=== PATIENT | male | born 1960 ===

== ENCOUNTER 2023-03-01 11:43 | Outpatient (REF) | payer MEDICAID, SELFPAY ==
[2023-03-01 13:56] LABS: Cholesterol 258 mg/dL (<200); HDL Cholesterol 54 mg/dL (>40); LDL Cholesterol Calculated 172 mg/dL (<100); Triglycerides 162 mg/dL (<150)
[2023-03-01 14:08] LABS: Alanine Aminotransferase 22 U/L (0-40); Albumin Level 4.4 g/dL (3.5-5.0); Alkaline Phosphatase 120 U/L (39-117); Aspartate Amino Transferase 16 U/L (5-37); Bilirubin Direct 0.2 mg/dL (0.0-0.5); Bilirubin Total 0.8 mg/dL (0.0-1.0); Total Protein 7.7 g/dL (6.5-8.0)
[2023-03-01 14:17] LABS: Vitamin D 25-OH Total 75.7 ng/mL (>30)
[2023-03-01 14:27] LABS: Reflex LDLD? No
== END 2023-03-01 11:44 | disposition home or self-care (01) ==
LOC: HO.HHCL 11:43
PROVIDERS: Visit Provider Internal Medicine
DX: E78.2 Mixed hyperlipidemia (principal); F33.1 Major depressive disorder, recurrent, moderate
CPT/HCPCS: 36415; 80061; 80076; 82306

== ENCOUNTER 2023-07-26 10:32 | Outpatient (REF) | payer MEDICAID, SELFPAY ==
[2023-07-26 12:40] LABS: Alanine Aminotransferase 15 U/L (0-40); Albumin Level 4.4 g/dL (3.5-5.0); Alkaline Phosphatase 123 U/L (39-117); Aspartate Amino Transferase 16 U/L (5-37); Bilirubin Direct 0.2 mg/dL (0.0-0.5); Bilirubin Total 0.6 mg/dL (0.0-1.0); Cholesterol 269 mg/dL (<200); HDL Cholesterol 57 mg/dL (>40); LDL Cholesterol Calculated 182 mg/dL (<100); Total Protein 7.7 g/dL (6.5-8.0); Triglycerides 152 mg/dL (<150)
[2023-07-26 12:45] LABS: Reflex LDLD? No
== END 2023-07-26 10:33 | disposition home or self-care (01) ==
LOC: HO.HHCL 10:32
PROVIDERS: Visit Provider Internal Medicine
DX: E78.2 Mixed hyperlipidemia (principal)
CPT/HCPCS: 36415; 80061; 80076

== ENCOUNTER 2023-10-17 13:35 | Outpatient (REF) | payer MEDICAID, SELFPAY ==
[2023-10-17 16:13] LABS: Appearance Urine Clear; Color Urine Yellow; Glucose Urine UA Negative (Negative); Leukocyte Esterase Urine Negative (Negative); Nitrite Urine Negative (Negative); UMIC TRIGGER UACC YES; Urine Blood Moderate (2+) (Negative); Urine Ketones Negative (Negative); Urine Protein Negative (Neg-Trace)
[2023-10-17 16:16] LABS: Bacteria Urine None Seen (None Seen); Hyaline Casts Urine 0-2 /LPF (0-2); WBC Urine 0-5 /HPF (0-5)
[2023-10-17 16:56] LABS: PSA,Total (Free>4and<10) 1.35 ng/mL (0.00-4.00)
== END 2023-10-17 13:36 | disposition home or self-care (01) ==
LOC: HO.HHCL 13:35
PROVIDERS: Visit Provider Internal Medicine
DX: R39.9 Unspecified symptoms and signs involving the genitourinary system (principal)
CPT/HCPCS: 36415; 81001; 84153

== ENCOUNTER 2023-10-27 12:02 | Outpatient (REF) | payer MEDICAID, SELFPAY ==
--- NOTE | ~2023-10-27 | US_ITS ---
EXAMINATION: US RETROPERITONEAL LIMITED (RENAL ONLY) CLINICAL INFORMATION: Hematuria. Rule out kidney stones. COMPARISON: None available. TECHNIQUE: Real-time imaging of the kidneys. FINDINGS: RIGHT KIDNEY: 10.3 x 6.0 x 5.1 cm (SAG x AP x TRV). The kidney is normal in size, contour, and echogenicity. Renal cortical thickness is normal. No renal calculi or hydronephrosis. Small cyst 5 x 6 x 5 mm. LEFT KIDNEY: 10.1 x 5.4 x 5.3 cm (SAG x AP x TRV). The kidney is normal in size, contour, and echogenicity. Renal cortical thickness is normal. No calculi or focal parenchymal lesions. No hydronephrosis. BLADDER: Large shadowing structure likely stone in the urinary bladder 1.5 x 1.7 x 1.9 cm. US/US renal BI IMPRESSION: 1. Large shadowing structure likely stone in the urinary bladder 1.9 cm. 2. No ultrasound evidence of renal obstruction or hydronephrosis.
== END 2023-10-27 12:03 | disposition home or self-care (01) ==
LOC: HO.US 12:02
PROVIDERS: PCP Internal Medicine; Visit Provider Internal Medicine
DX: R31.29 Other microscopic hematuria (principal)
CPT/HCPCS: 76775

== ENCOUNTER 2023-12-22 10:44 | Outpatient (AMB) | payer MEDICAID, SELFPAY ==
--- NOTE | 2023-12-22 10:45 | A.OFFVIS_ITS ---
Intake Visit Reasons: urinary frequency Intake Note: New Patient presents for initial visit for urinary frequency Urology Medications: none Blood Thinner: none PVR: 10ml's Roof Technician Required: No Accompanied by: Self / Same As Patient Allergies No Known Allergies Allergy (Verified 12/22/23 11:20) Medication List - Last Reconciled 12/22/23 by ARNULFO Lockett atorvastatin 40 mg PO DAILY buspirone 7.5 mg PO BID fluoxetine 20 mg PO DAILY hydroxyzine pamoate 25 mg PO TID PRN tamsulosin 0.4 mg PO BEDTIME 30 days venlafaxine ER 150 mg PO DAILY HPI Comments Details: Nelson is a pleasant 63-year-old Faroese-speaking male patient of Dr. Handy. He has a past medical history of allergies, GERD, vitamin-D deficiency, mixed hyperlipidemia, recurrent depression, and constipation. He presents to the office today as a new patient for ongoing lower urinary tract symptoms he has been experiencing (urinary urgency and urinary frequency). He reports having followed up with his PCP at which time a renal ultrasound was ordered for further assessment evaluation and referral to Urology was made. These results were reviewed with the patient today. Large shadowing structure likely stone in the urinary bladder measuring a proximally 1.9 cm. Bilateral kidneys with no calculi or hydronephrosis. Small right-sided renal cysts measuring a proximally 5 mm. Patient was unable to provide urine for urinalysis today however PVR 10 mL. In review of patient's chart it appears PSA was ordered and performed. These results reviewed with the patient today. 10/25 1.4. We discussed at length potential causes of lower urinary tract symptoms he is experiencing as well as bladder stones. Discussed further treatment options. He otherwise denies incontinence, dysuria, foul smelling urine, changes to urinary stream, flank pain, fever, and or chills. [facility] Medical History (Updated 12/22/23 @ 11:17 by Lauren Garcia, RIB CUTTER-BC) Lower urinary tract symptoms Non-seasonal allergic rhinitis Elevated blood pressure reading Tachycardia Gastro-esophageal reflux At risk for deficient intake of food Slow transit constipation Decreased vision Vitamin D deficiency Atopic conjunctivitis Chronic gastritis Mixed hyperlipidemia Moderate recurrent major depression Review of Systems Const All systems reviewed & are unremarkable except as noted in HPI and below Physical Exam Const General: cooperative, comfortable, no acute distress, well developed, alert and awake Orientation/consciousness: patient oriented x3 HEENT Head: Yes normal to inspection, Yes normocephalic and Yes atraumatic Ears: hearing grossly normal bilaterally Eyes General: appearance normal, both eyes and all related structures Neck Neck: Yes normal visual inspection and Yes trachea midline Chest Chest palpation & inspection: normal inspection of the chest Resp Effort & Inspection: normal respiratory effort and able to speak in complete sentences Cardio Rate: regular rate GI Inspection: Yes normal to inspection General: Yes no CVA tenderness Back/Spine/Pelvis Back: no CVA tenderness Skin General skin exam: no rashes or lesions noted Neuro General: patient oriented x3 Extrem General: Yes normal to inspection Psych Appearance: grossly normal and well kempt Mental Status: mental status grossly normal Speech and movement: Normal speech and movement present and Clear speech present Affect: normal affect Attitude: cooperative Thought process: Normal thought process present Thought content: Normal thought content present Insight: Fair insight present (Psych) Judgement: Fair judgement present (Psych) Office Procedures Post Void Residual Post Residual Void Post Void Residual (PVR): 10 46445-Lipf Void Residual by ultrasound Results Reviewed Results Reviewed: Date of Service: 10/27/23 EXAMINATION: US RETROPERITONEAL LIMITED (RENAL ONLY) FINDINGS: RIGHT KIDNEY: 10.3 x 6.0 x 5.1 cm (SAG x AP x TRV). The kidney is normal in size, contour, and echogenicity. Renal cortical thickness is normal. No renal calculi or hydronephrosis. Small cyst 5 x 6 x 5 mm. LEFT KIDNEY: 10.1 x 5.4 x 5.3 cm (SAG x AP x TRV). The kidney is normal in size, contour, and echogenicity. Renal cortical thickness is normal. No calculi or focal parenchymal lesions. No hydronephrosis. BLADDER: Large shadowing structure likely stone in the urinary bladder 1.5 x 1.7 x 1.9 cm. IMPRESSION: 1. Large shadowing structure likely stone in the urinary bladder 1.9 cm. 2. No ultrasound evidence of renal obstruction or hydronephrosis. Assessment & Plan Assessment & Plan (1) Bladder calculi: Code(s): N21.0 - Calculus in bladder Category: Medical (2) Urinary frequency: Code(s): R35.0 - Frequency of micturition Category: Medical Plan Unable to obtain urine for urinalysis however PVR 10 mL. Recent renal ultrasound results reviewed with the patient today; as noted above. Recent PSA results reviewed with the patient today; as noted above. Start Flomax as discussed and prescribed. Discussed in office cystoscopy for further assessment evaluation of bladder stone and possible surgical intervention; risks and benefits of this intervention was discussed All questions were answered. Discussed potential causes of lower urinary tract symptoms as well as bladder stones. Follow-up in office cystoscopy; or sooner with any issues, concerns, and or questions. Orders: Orders AMB Urinalysis Automated Today Z13.9 - Encounter for screening, unspecified AMB Post Void Residual by ultrasound Today Z13.9 - Encounter for screening, unspecified Medications: New tamsulosin 0.4 mg PO BEDTIME 30 caps 3RF 30 days N40.1 - Benign prostatic hyperplasia with lower urinary tract symptoms, R35.1 - Nocturia Coding Level of Care Code New Pt Level 4 (68306) Diagnoses Bladder calculi N21.0 Urinary frequency R35.0 CPT Codes Post Residual Void - PVR CPT Code: 30636-Qqqn Void Residual by ultrasound ([id number])
== END 2023-12-22 11:29 | disposition home or self-care (01) ==
PROVIDERS: PCP Internal Medicine; Visit Provider Nurse Practitioner Family
DX: N21.0 Calculus in bladder (principal); R35.0 Frequency of micturition
CPT/HCPCS: 99204

== ENCOUNTER → 2023-12-22 10:44 | Outpatient (BNVA) | payer MEDICAID, SELFPAY | PROVIDERS: PCP Internal Medicine; Visit Provider Nurse Practitioner Family | DX: N21.0 Calculus in bladder (principal); R35.0 Frequency of micturition | CPT/HCPCS: 51798; 99212 ==

== ENCOUNTER 2024-02-02 13:35 | Outpatient (AMB) | payer MEDICAID, SELFPAY ==
--- NOTE | 2024-02-02 13:57 | MHC.OFFVIS ---
Intake Visit Reasons: cysto(Urinary Frequency) Intake Note: Patient is Present for Cystoscopy Urology Med: Tamsulosin Antibiotic Allergy:None Blood Thinner: None URO- G Disposable Cystoscope lot:[id number] exp:05/05/2026 Helper Metal Hanging Required: Yes Helper Metal Hanging Language: Natural Resource Economist Services: Helper Metal Hanging Present Information Interpreted: clinical only Accompanied by: Self / Same As Patient Allergies No Known Allergies Allergy (Verified 02/02/24 14:02) HPI Comments Details: Nelson is a pleasant Turkmen-speaking male. He is a patient of Dr. Handy. Using for the following urologic conditions - bladder stone - lower urinary tract symptoms Cystoscopy - bladder stone with irritated bladder mucosa Recommend GreenLight laser prostate with holmium laser bladder stone Lower urinary tract symptoms Should presentation with urgency and frequency Ultrasound performed which showed 1.9 cm bladder stone PFSH Medical History Lower urinary tract symptoms Non-seasonal allergic rhinitis Elevated blood pressure reading Tachycardia Gastro-esophageal reflux At risk for deficient intake of food Slow transit constipation Decreased vision Vitamin D deficiency Atopic conjunctivitis Chronic gastritis Mixed hyperlipidemia Moderate recurrent major depression Review of Systems Const Denies chills and Denies fever(s) Card Reports no additional complaints and Denies syncope Resp Denies cough GI Denies abdominal pain and Denies heartburn Reports as per HPI and Denies change in libido Neuro Denies syncope Psych Denies change in libido Endo Denies change in libido Physical Exam Const General: cooperative, healthy appearing, comfortable and no acute distress Orientation/consciousness: patient oriented x3 HEENT Face and sinus: Yes normal facial exam Mouth: moist mucous membranes Neck Neck: Yes normal visual inspection, Yes full ROM and Yes trachea midline Chest Chest palpation & inspection: normal inspection of the chest Resp Effort & Inspection: normal respiratory effort, able to speak in complete sentences and no respiratory distress GI Inspection: Yes normal to inspection Back/Spine/Pelvis Cervical Spine: normal cervical lordosis Thoracic/Lumbar Spine: thoracic and lumbar spine normal to inspection Skin General skin exam: no rashes or lesions noted Neuro General: patient oriented x3, gait normal, tone normal and moves all extremities Extrem General: Yes normal to inspection and Yes capillary refill normal Office Procedures Cystoscopy Consent Discussed risk and benefit or proposed procedure with the patient. Information consent for procedure given to the patient. Discussed technical aspects, risks, benefits and alternatives in full. Addressed all of the patient's questions and concerns regarding the procedure. The patient demonstrated knowledge and understanding. They wish to proceed with this procedure. Preparation The patient was prepped in the usual manner. A batch plant supervisor was present and in the room. Genitalia was prepped with betadine solution in a sterile manner. Lidocaine Jelly 2% was placed into the urethra and 16Fr flexible Olympus cystoscope was inserted into the meatus after adequate lubrication. [id number] DISPOSABLE SCOPE URO-G FLEXIBLE SCOPE Procedure code (CPT) selection complete Office Meds lidocaine HCl 2 % mucosal jelly in applicator Performing Provider: Shivam Bellamy MD Performing Location: [facility] Administered by: Rob Pal RN on 02/02/24 14:17 Dose Route Admin Location Dispensed Lot Number Expiration Date NDC [employer] 10 mL intra-urethral 10 mL nitrofurantoin monohydrate/macrocrystals 100 mg capsule Performing Provider: Shivam Bellamy MD Performing Location: [facility] Administered by: Rob Pal RN on 02/02/24 14:17 Dose Route Admin Location Dispensed Lot Number Expiration Date NDC [employer] 100 mg PO 1 cap naproxen 500 mg tablet Performing Provider: Shivam Bellamy MD Performing Location: [facility] Administered by: Rob Pal RN on 02/02/24 14:17 Dose Route Admin Location Dispensed Lot Number Expiration Date NDC [employer] 500 mg PO 1 tab Assessment & Plan Assessment & Plan (1) Bladder outlet obstruction: Code(s): N32.0 - Bladder-neck obstruction Category: Medical Plan Risks, benefits and alternatives to therapy were discussed. These include but are not limited to infection, bleeding, damage to local organs and tissues, need for further interventions. Anesthetic risks regarding cardiac arrhythmia, blood clots, and potential mortality were discussed. The patient understands the typical recovery time and the outpatient nature of the procedure. After consideration of these risks the patient gives full informed consent and they wish to move ahead with the procedure. GreenLight laser prostate, holmium laser bladder stone Orders: Orders AMB Urinalysis Automated Today Z13.9 - Encounter for screening, unspecified AMB Cystoscopy Today R35.0 - Frequency of micturition Medications: New lidocaine HCl 2% 10 mL intra-urethral ONCE 10 mL 0RF R35.0 - Frequency of micturition nitrofurantoin monohyd/m-cryst 100 mg 100 mg PO ONCE 1 cap 0RF R35.0 - Frequency of micturition naproxen 500 mg PO ONCE 1 tab 0RF R35.0 - Frequency of micturition Patient Instructions: Imaging studies, laboratory and physical exam results were discussed and reviewed in detail. No major barriers to patient understanding were identified. An opportunity to ask questions regarding the treatment plan was provided. All questions were answered. The patient expressed understanding and agreement with the above treatment plan. The patient is aware they should contact our office by phone for worsening of their current condition or the appearance of new urologic symptoms. Compliance is encouraged with any medications and followup testing that is ordered. It is a privilege to participate in the urologic care of your patient. If you have any questions or concerns regarding treatment for the above conditions, or other urologic issues, please do not hesitate to contact me. The office telephone contact is [phone]. This note is constructed using voice recognition software. While every effort has been made to ensure accuracy support services coordinator errors may have been included. Yours sincerely, Dr Shivam Bellamy MD, [facility] - Urology Providers of Expert, Compassionate Care for the Genitourinary System Coding Level of Care Code Est Pt Level 4 (65536) Diagnoses Bladder outlet obstruction N32.0 CPT Codes Cystoscopy - CPT: 14510-Snkjtzetny ([id number])
== END 2024-02-02 14:30 | disposition home or self-care (01) ==
LOC: HO.HUSH 13:36
PROVIDERS: PCP Internal Medicine; Visit Provider Urology
DX: N32.0 Bladder-neck obstruction (principal); R35.0 Frequency of micturition
CPT/HCPCS: 52000; 99214

== ENCOUNTER → 2024-02-02 13:35 | Outpatient (BNVA) | payer MEDICAID, SELFPAY | PROVIDERS: PCP Internal Medicine; Visit Provider Urology | DX: N32.0 Bladder-neck obstruction (principal) | CPT/HCPCS: 52000; 99212 ==

== ENCOUNTER 2024-03-05 06:44 | Day surgery (SDC) | payer MEDICAID, SELFPAY ==
[2024-02-28 13:05] VITALS: BMI 21.6
--- NOTE | 2024-02-29 10:59 | P.CONAN_ITS ---
Documented by User: Jordana Mixon NP 02/29/24 10:59 HPI - Anesthesia Eval Consult details Narrative: 63yo M for Laser Ablation Prostate w/Green Light,with Bladder Stone Removal PMFSH Active Problems Active Problems: All Active Problems Bladder outlet obstruction (Acute) Urinary frequency (Acute) Bladder calculi (Acute) Past Medical History Medical History (Updated 02/02/24 @ 14:28 by Shivam Bellamy MD) Lower urinary tract symptoms Non-seasonal allergic rhinitis Elevated blood pressure reading Tachycardia Gastro-esophageal reflux At risk for deficient intake of food Slow transit constipation Decreased vision Vitamin D deficiency Atopic conjunctivitis Chronic gastritis Mixed hyperlipidemia Moderate recurrent major depression Surgical History Surgical History Hx of circumcision History of esophagogastroduodenoscopy (EGD) H/O colonoscopy Social History Social History Are you a primary resident care aide to a significant other at home: No Do you presently have visiting nurse or other home services: No Patient Tobacco Use Status: Never used Tobacco Have you been hit, kicked, punched, or otherwise hurt by someone within the past year? If so, by whom?: No Are you DNR?: No Advance Directives: No Advance Directives Information Provided: No Advance Directives on File: No Recently lost weight without trying: Yes How much weight loss: 2-13 pounds Eating poorly because of decreased appetite: No Nutrition screen score: 3 Nutrition Risks: No Nutritional Risk Poor oral hygiene: No Meds Allergies Allergy/AdvReac Type Severity Reaction Status Date / Time No Known Allergies Allergy Verified 02/02/24 14:02 Home Medications ?Medication ?Instructions ?Recorded ?Confirmed ?Last Taken ?Type atorvastatin 40 mg tablet 40 mg PO DAILY 12/22/23 03/05/24 Unknown History buspirone 7.5 mg tablet 7.5 mg PO BID anxiety 12/22/23 03/05/24 Unknown History fluoxetine 20 mg capsule 20 mg PO DAILY 12/22/23 03/05/24 Unknown History hydroxyzine pamoate 25 mg capsule 25 mg PO TID PRN panic attack 12/22/23 03/05/24 Unknown History venlafaxine 150 mg 150 mg PO DAILY 12/22/23 03/05/24 Unknown History capsule,extended release 24 hr omeprazole 40 mg capsule,delayed 40 mg PO DAILY PRN heartburn 02/28/24 03/05/24 Unknown History release Exam Height,Weight and Vital Signs: Height 5 ft 4 in Weight 57.2 kg Assessment and Plan Assessment Anesthesia Assessment: Chart Reviewed Documented by User: Katheryn Teran MD 03/05/24 09:12 [facility] Past Medical History Medical History (Updated 02/02/24 @ 14:28 by Shivam Bellamy MD) Lower urinary tract symptoms Non-seasonal allergic rhinitis Elevated blood pressure reading Tachycardia Gastro-esophageal reflux At risk for deficient intake of food Slow transit constipation Decreased vision Vitamin D deficiency Atopic conjunctivitis Chronic gastritis Mixed hyperlipidemia Moderate recurrent major depression Family History Family history of problems with anesthesia: No Surgical History Surgical History Hx of circumcision History of esophagogastroduodenoscopy (EGD) H/O colonoscopy History of Problems with Anesthesia: No Social History Social History Are you a primary resident care aide to a significant other at home: No Do you presently have visiting nurse or other home services: No Patient Tobacco Use Status: Never used Tobacco Have you been hit, kicked, punched, or otherwise hurt by someone within the past year? If so, by whom?: No Are you DNR?: No Advance Directives: No Advance Directives Information Provided: No Advance Directives on File: No Recently lost weight without trying: Yes How much weight loss: 2-13 pounds Eating poorly because of decreased appetite: No Nutrition screen score: 3 Nutrition Risks: No Nutritional Risk Poor oral hygiene: No Meds Allergies Allergy/AdvReac Type Severity Reaction Status Date / Time No Known Allergies Allergy Verified 02/02/24 14:02 Home Medications ?Medication ?Instructions ?Recorded ?Confirmed ?Last Taken ?Type atorvastatin 40 mg tablet 40 mg PO DAILY 12/22/23 03/05/24 Unknown History buspirone 7.5 mg tablet 7.5 mg PO BID anxiety 12/22/23 03/05/24 Unknown History fluoxetine 20 mg capsule 20 mg PO DAILY 12/22/23 03/05/24 Unknown History hydroxyzine pamoate 25 mg capsule 25 mg PO TID PRN panic attack 12/22/23 03/05/24 Unknown History venlafaxine 150 mg 150 mg PO DAILY 12/22/23 03/05/24 Unknown History capsule,extended release 24 hr omeprazole 40 mg capsule,delayed 40 mg PO DAILY PRN heartburn 02/28/24 03/05/24 Unknown History release Exam Airway Mallampati Class: II TM Dist: >3cm Neck ROM: Full Heart: rrr Lungs: cta Assessment and Plan Assessment Anesthesia Assessment: Anesthesia Plan Discussed Final Anesthetic Review Family History of Problems with Anesthesia: No History of Problems with Anesthesia: No NPO: Yes ASA Class: II Final Preanesthetic Review: No Changes in Pt Med Stat, Meds/Allgs Chart Reviewed and Consent Obtained/Reviewed Patient Risk: Low Procedure Risk: Low Anesthetic Plan Anesthetic Plan: GA Disposition: Standard PACU
[2024-03-05 07:45] VITALS: BMI 22.6
[2024-03-05 08:05] VITALS: BP 154/91; PULSE 108; RESP 16; TEMP 37.1; O2SAT 99
[2024-03-05] MEDS: Lactated Ringers 1,000 ML 100 ML IVCONT (08:07)
--- NOTE | 2024-03-05 09:08 | MHC.SHP ---
Pre-Procedural Eval Section A - 24 Hr Update-Section A only Date of Service: 03/05/24 The patient is an INPATIENT: No Changes since office visit: No Cold of Flu in the past 2 weeks, No New Medical Problems, No Changes in Medication and No Patient answered all questions The patient has been examined within 24 hours of the surgical procedure. The History & Physical has been completed within 30 days and I have reviewed it.: Yes Section B - Complete if H&P > 30 days Chief Complaint: Calculus in bladder,Bladder-neck obstruction Details of Present Illness: Holmium laser bladder stone plus GreenLight laser prostate Allergies: Allergies Allergy/AdvReac Type Severity Reaction Status Date / Time No Known Allergies Allergy Verified 02/02/24 14:02 Plan I have reviewed the history and physical and performed a pertinent physical examination on my patient. No changes have occurred unless specified. Time Spent With Patient Time: Total time managing care of this patient today ____ minutes.
--- NOTE | 2024-03-05 10:31 | W.PM.OPN ---
Operative Note Operative Note Date of Service: 03/05/24 Narrative: PreOperative Diagnosis: Bladder outlet obstruction with bladder stone Post Operative Diagnosis: Bladder outlet obstruction with bladder stone Procedure: Holmium laser bladder stone 2 cm GreenLight Laser Enucleation of the prostate CPT 08746 Surgeon: Dr Shivam Bellamy Anesthesia: General History of bladder outlet obstruction. Treated with alpha-myah and other medications. Still with symptoms. On cystoscopy in office has tight bladder neck with bladder stones. Recommendation for prostate procedure with laser enucleation of prostate. Risks and benefits have been discussed. Focus was placed on development of retrograde ejaculation which is a normal part of this procedure. Procedure: After informed consent was verified the patient was brought to the operating room and placed in a supine position. Anesthesia was administered per protocol. Patient was placed in modified dorsal lithotomy position and prepped and draped in a sterile fashion. Safety pause time-out was confirmed. Antibiotics have been given. A Twenty-four Guamanian laser cystoscope was inserted per urethra. No abnormalities were found of the anterior and bulbar urethra. The prostatic urethra shows tight bladder neck with 2 cm bladder stone. The bladder was examined and both ureteric orifices were seen in their normal positions away from the area of interest. Bladder trabeculation grade 2. Using a 560 nm end fire holmium laser with bladder stones settings the stone was slowly broken into small pieces. The small pieces were irrigated from the bladder. This continued for approximately 15-20 minutes to break the stone Using a GreenLight laser with settings of 80 ricardo incisions were made at the 5 and 7 o'clock position. The incisions were taken down from the bladder neck down to the level of the veru. These were gradually deepened in order to define the lateral aspects of the median lobe area. Once clearly defined they will also extended in the lateral directions in order to create a deep groove. The median lobe was then ablated and enucleated tissue released into the bladder with the laser power increased to 120 W. Once the median lobe area had been cleared attention was directed to the lateral lobes. Starting with the patient's left lateral lobe. First the 05:00 o'clock groove was further developed. This was moved in the lateral direction to undermine the tissue on the lateral side running from the bladder neck to the prostate apex. The ureteric orifice was used to guide incisions. Focus was then placed on the laser at the 1 o'clock position to developing a secondary groove down to the level of bladder fibers. The creation of a second deep groove defined a segment of intervening tissue similar to a slice of orange. At the apex of the prostate the 2 grooves were linked the us releasing the intervening tissue. This tissue was then removed with a combination of enucleation and ablation working from the apex toward the bladder neck. A similar procedure was repeated on the patient's right-hand side. The only differences being the position of the lateral groove at he 7 o'clock position and the secondary groove at the 11 o'clock position, Otherwise the procedure was developed in a mirror fashion. After the majority of tissue had been debulked remnant tissue was ablated with the side fire laser and the curve of the prostate followed up each side wall clearly defining the anterior remnant strip that remained between the 11 and 1 o'clock positions. In this case the anterior tissue protruded into the prostatic fossa and was partially ablated with the laser When this was had been completed debris and pieces of prostate were removed from the bladder with irrigation. Both ureteric orifices were reviewed again in shown to be patent in away from any areas of energy damage. The apical area was reviewed in any stray ooze was controlled. A 22 Guamanian 30 cc balloon Jimenez catheter was placed over a stylet into the bladder. Clear efflux was obtained upon irrigation with a Hemal piston syringe. 30 cc was placed in the balloon and gentle traction was placed. A snap was used to hold tension on the catheter to control bleeding during patient moved and transported. A drainage bag was placed. Once transportation is complete to the PACU the snap will be removed. The patient tolerated the procedure well, he was extubated in the operating and transferred in a stable condition to the recovery area. Total Power 90 kW Lasing time 13:53 Pathology: Prostate tissue Drains: Jimenez catheter
[2024-03-05 10:35] VITALS: BP 101/70; PULSE 74; RESP 16; TEMP 36.6; O2SAT 96
[2024-03-05 10:40] VITALS: BP 102/71; PULSE 70; RESP 16; TEMP 36.6; O2SAT 96
[2024-03-05 10:45] VITALS: BP 107/71; PULSE 68; RESP 16; TEMP 36.6; O2SAT 96
[2024-03-05 10:50] VITALS: BP 119/59; PULSE 79; RESP 16; TEMP 36.6; O2SAT 96
[2024-03-05 11:05] VITALS: BP 130/85; PULSE 84; RESP 16; TEMP 36.6; O2SAT 96
== END 2024-03-05 12:24 | disposition home or self-care (01) ==
PROVIDERS: PCP Internal Medicine; Visit Provider Urology
PROC: (CPT 52648; principal; 2024-03-05 09:20)
DX: N21.0 Calculus in bladder (principal); N32.0 Bladder-neck obstruction; R39.15 Urgency of urination; R35.0 Frequency of micturition; N32.89 Other specified disorders of bladder; R03.0 Elevated blood-pressure reading, without diagnosis of hypertension; E55.9 Vitamin D deficiency, unspecified; E78.2 Mixed hyperlipidemia; R00.0 Tachycardia, unspecified; J30.89 Other allergic rhinitis; K29.50 Unspecified chronic gastritis without bleeding; F33.1 Major depressive disorder, recurrent, moderate; Z79.899 Other long term (current) drug therapy
CPT/HCPCS: 52649; 52317; 88300; 88305; J1100; J1956; J2003; J2250; J2405; J2704; J3010

== ENCOUNTER → 2024-03-05 06:44 | Outpatient (BNV) | payer MEDICAID, SELFPAY | PROVIDERS: PCP Internal Medicine; Visit Provider Urology | DX: N32.0 Bladder-neck obstruction (principal); N21.0 Calculus in bladder | CPT/HCPCS: 52317; 52649 ==

== ENCOUNTER → 2024-03-08 10:32 | Outpatient (BNVA) | payer MEDICAID, SELFPAY | PROVIDERS: PCP Internal Medicine; Visit Provider Urology | DX: N21.0 Calculus in bladder (principal); N32.0 Bladder-neck obstruction; R35.0 Frequency of micturition | CPT/HCPCS: 51700; 51798 ==

== ENCOUNTER 2024-04-17 12:44 | Outpatient (AMB) | payer MEDICAID, SELFPAY ==
--- NOTE | 2024-04-17 13:16 | MHC.OFFVIS ---
Intake Visit Reasons: Greenlight- follow up Intake Note: Patient is present for GREENLIGHT F/U Urology Medication:TAMSULOSIN Antibiotic Allergy:NONE Blood Thinner:NONE Ground Defence Officer Required: No Allergies No Known Allergies Allergy (Verified 04/17/24 13:17) HPI Comments Details: Nelson is a pleasant Romanian-speaking male. He is a patient of Dr. Handy. Using for the following urologic conditions - bladder stone - lower urinary tract symptoms Romanian translation provided by qualified medical technologist clinical Follow-up from GreenLight laser Still with trace blood Reduced urgency and frequency Reduced nocturia Stable PVR Lower urinary tract symptoms Should presentation with urgency and frequency Ultrasound performed which showed 1.9 cm bladder stone PFSH Medical History (Updated 02/02/24 @ 14:28 by Shivam Bellamy MD) Lower urinary tract symptoms Non-seasonal allergic rhinitis Elevated blood pressure reading Tachycardia Gastro-esophageal reflux At risk for deficient intake of food Slow transit constipation Decreased vision Vitamin D deficiency Atopic conjunctivitis Chronic gastritis Mixed hyperlipidemia Moderate recurrent major depression Surgical History Hx of circumcision History of esophagogastroduodenoscopy (EGD) H/O colonoscopy Social History Are you a primary managed care director to a significant other at home: No Do you presently have visiting nurse or other home services: No Patient Tobacco Use Status: Never used Tobacco Review of Systems Const Denies chills and Denies fever(s) Card Reports no additional complaints and Denies syncope Resp Denies cough GI Denies abdominal pain and Denies heartburn Reports as per HPI and Denies change in libido Neuro Denies syncope Psych Denies change in libido Endo Denies change in libido Physical Exam Const General: cooperative, healthy appearing, comfortable and no acute distress Orientation/consciousness: patient oriented x3 HEENT Face and sinus: Yes normal facial exam Mouth: moist mucous membranes Neck Neck: Yes normal visual inspection, Yes full ROM and Yes trachea midline Chest Chest palpation & inspection: normal inspection of the chest Resp Effort & Inspection: normal respiratory effort, able to speak in complete sentences and no respiratory distress GI Inspection: Yes normal to inspection Back/Spine/Pelvis Cervical Spine: normal cervical lordosis Thoracic/Lumbar Spine: thoracic and lumbar spine normal to inspection Skin General skin exam: no rashes or lesions noted Neuro General: patient oriented x3, gait normal, tone normal and moves all extremities Extrem General: Yes normal to inspection and Yes capillary refill normal Results AMB Urinalysis, Automated UA Leukoctes 70 Enedelia/uL Last Edit by ABDIEL Rajan on 04/17/24 13:25 UA Nitrite Negative Last Edit by Stacey Brambila CCM on 04/17/24 13:25 UA Urobilinogen 0.2 mg/dL Last Edit by ABDIEL Rajan on 04/17/24 13:25 UA Protein 30 mg/dL Last Edit by Stacey Brambila [facility] on 04/17/24 13:25 UA pH 6.0 Last Edit by Stacey Brambila [facility] on 04/17/24 13:25 UA Blood 80 Yariel/uL Last Edit by Stacey Brambila CCM on 04/17/24 13:25 UA Specific Spivey 1.025 Last Edit by Stacey Brambila [facility] on 04/17/24 13:25 UA Ketone Negative Last Edit by Stacey Brambila [facility] on 04/17/24 13:25 UA Bilirubin 0 mg/dL Last Edit by Stacey Brambila [facility] on 04/17/24 13:25 UA Glucose 0 mg/dL Last Edit by Stacey Brambila [facility] on 04/17/24 13:25 Results Reviewed Results Reviewed: Laboratory Last Values Urine pH (Auto) 6.0 04/17/24 13:25 Specific Spivey (Auto) 1.025 04/17/24 13:25 Urine Protein (Auto) 30 mg/dL 04/17/24 13:25 Glucose (UA)(Auto) 0 mg/dL 04/17/24 13:25 Urine Ketones (Auto) Negative 04/17/24 13:25 Urine Blood (Auto) 80 Yariel/uL 04/17/24 13:25 Urine Nitrite (Auto) Negative 04/17/24 13:25 Urine Bilirubin (Auto) 0 mg/dL 04/17/24 13:25 Urine Urobilinogen (Auto) 0.2 mg/dL 04/17/24 13:25 Leukocyte Esterase (Auto) 70 Enedelia/uL 04/17/24 13:25 Assessment & Plan Assessment & Plan (1) Bladder calculi: Code(s): N21.0 - Calculus in bladder Category: Medical (2) Bladder outlet obstruction: Code(s): N32.0 - Bladder-neck obstruction Category: Medical Plan Try stopping tamsulosin Orders: Orders AMB Urinalysis Automated 04/17/24 Z13.9 - Encounter for screening, unspecified Prostate Specific Antigen 6 Months N32.0 - Bladder-neck obstruction Patient Instructions: Imaging studies, laboratory and physical exam results were discussed and reviewed in detail. No major barriers to patient understanding were identified. An opportunity to ask questions regarding the treatment plan was provided. All questions were answered. The patient expressed understanding and agreement with the above treatment plan. The patient is aware they should contact our office by phone for worsening of their current condition or the appearance of new urologic symptoms. Compliance is encouraged with any medications and followup testing that is ordered. It is a privilege to participate in the urologic care of your patient. If you have any questions or concerns regarding treatment for the above conditions, or other urologic issues, please do not hesitate to contact me. The office telephone contact is [phone]. This note is constructed using voice recognition software. While every effort has been made to ensure accuracy manager collection errors may have been included. Yours sincerely, Dr Shivam Bellamy MD, [facility] - Urology Providers of Expert, Compassionate Care for the Genitourinary System Coding Level of Care Code Est Pt Level 3 (64484) Diagnoses Bladder calculi N21.0 Bladder outlet obstruction N32.0
== END 2024-04-17 13:58 | disposition home or self-care (01) ==
PROVIDERS: PCP Internal Medicine; Visit Provider Urology
DX: Z13.9 Encounter for screening, unspecified (principal)

== ENCOUNTER → 2024-04-17 12:44 | Outpatient (BNVA) | payer MEDICAID, SELFPAY | PROVIDERS: PCP Internal Medicine; Visit Provider Urology | DX: N21.0 Calculus in bladder (principal); N32.0 Bladder-neck obstruction | CPT/HCPCS: 81003; 99212 ==

== ENCOUNTER 2024-08-17 13:55 | Outpatient (REF) | payer MEDICAID, SELFPAY ==
--- OUTSIDE RECORDS SUMMARY | 2024-08-17 13:59 | XMS_ITS | Encounter Summary ---
Author Organization [employer] Address [address] [place] [address] [address], [place] [address] Care Team Providers Care Bass Viol Repairer Name Role Phone Nikki Handy MD Primary Care Provider + Encounter Details Date Type Department Care Team (Latest Contact Info) Description 05/12/2018 Abstract [facility] CONVERSIONS Dental, Provider, DDS Social History Tobacco Use Types Packs/Day Years Used Date Smoking Tobacco: Never Assessed Sex and Gender Information Value Date Recorded Sex Assigned at Male 02/01/2022 10:14 AM EDT Legal Sex Male 10:14 AM EDT Gender Identity Male 03/01/2023 11:06 AM EST Sexual Orientation Choose not to disclose 2021 10:14 AM EDT documented as of this encounter Plan of Treatment Upcoming Encounters Date Type Department Care Team (Late st Contact Info) Description 08/22/2024 10:15 AM EDT Office Visit [facility] MEDICINE [address] [place] [address] Nikki Handy MD [address] [place] [address] 11/22/2024 1:00 PM EDT Office Visit [facility] OPTOMETRY [address] [place] [address] Jo Peres OD [address] [place] [address] 12/27/2024 3:00 PM EDT Office Visit [facility] [address] [place] [address] Megan Matias documented as of this encounter Visit Diagnoses Not on filedocumented in this encounter Care Teams Bass Viol Repairer Relationship Specialty Start Date End Date Nikki Handy MD [address] [place] [address] PCP - General Family Medicine 05/14/20 documented as of this encounter
--- OUTSIDE RECORDS SUMMARY | 2024-08-17 13:59 | XMS_ITS | Encounter Summary ---
Author Organization [employer] Address [address] [facility] [address] [place] [address] Care Team Providers Care Cement And Concrete Plant Worker Name Role Phone Nikki Handy MD Primary Care Provider + Encounter Details Date Type Department Care Team (Late st Contact Info) Description 05/27/2022 Orders Only [facility]C MED & PEDS [address] [place] [address] Ericka Montalvo LPN Social History Tobacco Use Types Packs/Day Years [...] Encounters Date Type Department Care Team (Late Contact Info) Description 08/22/2024 10:15 AM EDT Office Visit [facility] MEDICINE [address] [place] [address] Nikki Handy MD [address] [place], [place] [phone] 11/22/2024 1:00 PM EDT Office Visit [facility] OPTOMETRY [address] [place] [address] Jo Peres, KAYLEE [address] [place], [place] [phone] 12/27/2024 3:00 PM EDT Office Visit [facility] ADULT DENTAL [address] [place] [address] Megan Matias documented as of this encounter Visit Diagnoses Not on filedocumented in this encounter Care Teams Cement And Concrete Plant Worker Relationship Specialty Start Date End Date Nikki Handy MD [address] [place] [address] PCP - General Family Medicine 05/14/20 documented as of this encounter
--- OUTSIDE RECORDS SUMMARY | 2024-08-17 13:59 | XMS_ITS | Encounter Summary ---
Author Organization [employer] Address [address] [facility] [address] [place] [address] Care Team Providers Care Chemical Dependency Counselor Name Role Phone Nikki Handy MD Primary Care Provider + Reason for Visit * Reason Comments Pre-visit Planning SDOH screening posit elizabeth and Tobacco screening negative Care Coordination PT1 Encounter Details Date Type Department Care Team (Latest Contact Info) Description 08/13/2024 Patient Outreach [facility] MEDICINE [address] [place] [address] Nikki Handy MD [address] [place], [place] [phone] Pre-visit Planning (SDOH screening positive and Tobacco screening negative); Care Coordination (PT1) Social History Tobacco Use Types Packs/Day Years Used Date Smoking Tobacco: Never Passive Smoke Exposure: Never Smokeless Tobacco: Never Alcohol Use Standard Drinks/Week Comments Never 0 (1 standard drink = 0.6 oz pur e alcohol) Depression Answer Date Recorded Patient Health Questionnaire-9 Score 0 04/24/2024 Patient Health Questionnaire-9 Score 0 04/24/2024 Last PHQ-9: Questionnaire Data Not on file 0 04/24/2024 Housing Stability Answer Date Recorded What is your housing situation today? I have lisha harmon 08/13/[address] you li ve. Do you have problems with any of the following? None of the above 08/13/2024 Food Insecurity Answer Date Recorded Within the past 12 months, y ou worried that your food would run out before you got money to buy more: Never True 08/13/2024 Within the past 12 months,th e food you bought just didn't last and you didn't have enough money to get more: Never True 03/2025 Transportation Answer Date Recorded In the past 12 months, has l ack of transportation kept you from medical appts, meetings, work or from getting things needed for daily living? Yes, it has kept me from medical appointments or getting medications. 08/13/2024 Utilities Answer Date Recorded In the past 12 months, has t he [employer], gas, oil or water company threatened to shut off services in your home? No 08/13/2024 Depression Answer Date Recorded Patient Health Questionnaire-2 Score 0 04/24/2024 Internet Access Answer Date Recorded Internet Access Q1 Yes 08/13/2024 Internet Access Q2 Not on file 08/13/2024 Sex and Gender Information Value Date Recorded Sex Assigned at Male 02/01/2022 10:14 AM EDT Legal Sex Male 10:14 AM EDT Gender Identity Male 03/01/2023 11:06 AM EST Sexual Orientation Choose not to disclose 2021 10:14 AM EDT documented as of this encounter Progress Notes * Diamante Biswas - 08/13/2024 2:58 PM EDT JAMES Orta placed successful outbound call to patient for pre-visit planning. Patient name and confirmed. Patient confirms appt date and time, and has transportation arrangements. Biggest concern for appointment at this time is no concerns. Patient advised to bring to appointment a photo id and insurance card. Appropriate screenings completed in anticipation of appointment. SDOH positive. Patient looking for assistance with transportation, Referral will be placed. * Jaida Rice - 08/13/2024 2:58 PM EDT RAY Rice, placed call to patient regarding assistance with transportation. CHW went over list of specialist the patient is currently seeing. CHW submitted PT1 for [facility]. CHW provided the patient with number to call to schedule that transportation as well as instructions. Patient verbalized understanding. documented in this encounter Plan of Treatment Upcoming Encounters Date Type Department Care Team (Late st Contact Info) Description 08/22/2024 10:15 AM EDT Office Visit [facility] MEDICINE [address] [place] [address] Nikki Handy MD [address] [place] [address] 11/22/2024 1:00 PM EDT Office Visit [facility] OPTOMETRY [address] [place], [place] [phone] Jo Peres, OD [address] [place] [address] 12/27/2024 3:00 PM EDT Office Visit [facility] ADULT DENTAL [address] [place] [address] Megan Matias documented as of this encounter Visit Diagnoses Not on filedocumented in this encounter Additional Health Concerns Assessment Noted Time PHQ-9 Depression Total Score: 0 04/24/19 25 10:11 AM EST documented as of this encounter Care Teams Chemical Dependency Counselor Relationship Specialty Start Date End Date Nikki Handy MD [address] [place] [id number] PCP - General Family Medicine 05/14/20 documented as of this encounter
--- OUTSIDE RECORDS SUMMARY | 2024-08-17 13:59 | XMS_ITS | Clinical Summary ---
Author Organization [employer] Address [address] [facility] 7[address] [place] [address] Care Team Providers Care Medical Concierge Name Role Phone Nikki Handy MD Primary Care Provider + Allergies No known active allergies Medications FLUoxetine (PROzac) 20 MG capsule Take 20 mg by mouth in the morning. 3 Active venlafaxine XR (Effexor XR) 150 MG 24 hr capsule Take 150 mg by mouth in the morning. 3 Active busPIRone (Buspar) 7.5 MG tablet TAKE 1 TABLET BY MOUTH TWICE DAILY FOR FOR ANXIETY 3 Active hydrOXYzine pamoate (Vistaril) 25 MG capsule TAKE 1 CAPSULE BY MOUTH THREE TIMES DAILY NEEDED ANXIETY SEVERE / PANIC ATTACK 3 Active omeprazole (PriLOSEC) [address] Julia ns:Gastroesophag eal reflux disease, unspecified whether esophagitis present Take 1 capsule (40 mg) by mouth 1 (one) time if needed (abd pain/heartburn) . Do not crush or chew. 90 capsule 3 Active atorvastatin (Lipitor) 40 MG tablet Take 1 tablet (40 mg) by mouth Once per day. 90 tablet 3 4 Active tamsulosin (Flomax) 0.4 MG 24 hr capsule Take 1 capsule (0.4 mg) by mouth Once per day. 30 capsule 1 4 Active Blood Pressure Monitoring (Blood Pressure Cuff) misc Use daily as prescribed 1 each 5 Active docusate sodium (Colace) 100 MG capsule Take 1 capsule (100 mg) by mouth 2 times daily. 180 capsule 5 Active Active Problems Problem Noted Date Diagnosed Date Other microscopic hematuria 10/21/2023 Tachycardia 10/17/2023 Assessment & Plan (10/17/2023 1:50 PM EDT): - repeated heart rate at the end is within normal limits - no need for additional workup Elevated blood pressure reading 10/17/2023 Assessment & Plan (04/24/2024 10:41 AM EST): BP is normal today, pt will continue to check BP at home 2-3 times per week and FU with me in 3 months. Recommended moderate amount of exercise and increase consumption of fruit, vegetables, fish and high fiber foods. Should decrease consumption of highly saturated fats or trans fats. Assessment & Plan (02/19/2024 8:06 PM EST): Unclear if related to anxiety or pain. Will treat anxiety. Follow up BP with me in 2 months. Counseled re low salt diet/increase moderate physical activity. Check home BP BIW and prn CP/VARGAS/JAIN Non smoking patient. Assessment & Plan (10/17/2023 1:51 PM EDT): - BP has remained within normal limits - will continue monitoring BP at next visit - pt advised about low sodium diet and increased exercise - no need for medications or additional treatments Non-seasonal allergic rhinitis 10/17/2023 Assessment & Plan (10/17/2023 1:52 PM EDT): - use Flonas PRN and re consult PRN Lower urinary tract symptoms (LUTS) 10/17/2023 Assessment & Plan (02/17/2024 12:01 PM EST): Related to BPH + Bladder Stones. Laser TURP on 03/05/2024 and follow up with Urology. Assessment & Plan (10/17/2023 1:51 PM EDT): - most likely BPH r/o UTI will f/u with results as pt could not urinate at the visit - refer to urology Encounter for colorectal can cer screening using Cologuard test 07/26/2023 Assessment & Plan (10/17/2023 1:52 PM EDT): - did not do Cologuard at this time, order Cologuard again, he declines colonoscopy - pt will read instructions in albanian that come along with the test and will call back to make an appointment with us for instructions if he does not understand them - discussed with pt importance of CRC screen Assessment & Plan (07/26/2023 2:28 PM EDT): - pt has failed to take cologuard x2 reportedly due to language barrier - I will send for cologuard again and counseled to bring any letter to either a family member or to us - pt declined colonoscopy Screening for colorectal cancer 03/01/2023 Assessment & Plan (04/24/2024 10:37 AM EST): Reminded pt to mail cologuard box. Assessment & Plan (07/26/2023 2:28 PM EDT): See below Assessment & Plan (03/23/2023 12:16 PM EST): Will order Cologuard again today Patient never received kit Assessment & Plan (03/01/2023 11:51 AM EST): Cologuard test , will reorder test At risk for deficient intake of food 03/01/2023 Assessment & Plan (03/01/2023 11:52 AM EST): Pt w/ financial resources limited to disability and state support, eats only once per day I will refer to [facility] for assistance for food resources in the community Gastroesophageal reflux disease 03/01/2023 Decreased vision 07/29/2022 Assessment & Plan (07/29/2022 11:00 AM EDT): referral in place since december 2021, will call eye clinic to schedule an appointment Slow transit constipation 07/29/2022 Assessment & Plan (07/29/2022 11:01 AM EDT): continue colace BID use milk of abdulaziz PRN Vitamin D deficiency 07/27/2022 Assessment & Plan (03/23/2023 12:16 PM EST): Within normal limits, off supplementation Senior Piping Designer regarding increase outdoor exercise Assessment & Plan (07/29/2022 11:02 AM EDT): resolved. vit d wnl counseld to increase outdoor exercise at least 15 minutes per day increase vitamin d consumption DC vit d supplementation fu vit d levels in 2 years Moderate recurrent major depression 12/11/2015 Assessment & Plan (07/26/2023 10:43 AM EDT): - pt seems to be doing well on Fluoxetine + Venlafaxine - continue f/u with [facility] - continue Hydroxyzine PRN and Buspar daily - feels safe at home and is able to reach out for safety Assessment & Plan (03/01/2023 11:50 AM EST): Pt has a depressed mood w/o SI or HI Continue to FU closely w/ mental health team Will refer to [facility] to support and discuss with pt regarding food resources in the community I discussed with him about going to soup kitchen, pantries, ect. Assessment & Plan (07/29/2022 11:01 AM EDT): doing well on meds needs to bring medication at next appointment pt is able to contract for safety and feels safe at home fu with MH team Mixed hyperlipidemia 12/11/2015 Assessment & Plan (04/24/2024 10:41 AM EST): Tolerates Atorvastatin well, check lipids and LFTs and FU with me in 3-4 months. Recommended moderate amount of exercise and increase consumption of fruit, vegetables, fish and high fiber foods. Should decrease consumption of highly saturated fats or trans fats. Assessment & Plan (03/23/2023 12:14 PM EST): Doing well on atorvastatin, started recently We discussed re rx options. She wants to be more strict with life style modifications. Recommended moderate amount of exercise and increased consumption of fruit, vegetables, fish and high fiber foods. We discussed about avoiding consumption of highly saturated fats or trans fats. FU lipids in 3 MOS Assessment & Plan (03/01/2023 11:51 AM EST): Uncelar if he's been complying with Atorvastatin Check lipids FU 3-4 wks TV Assessment & Plan (11/22/2022 1:12 PM EDT): Pt not compliant w/ meds Pt advised about med compliance and he agrees to be referred for medboxes Cont atorvastatin 20 mg daily We discussed re rx options. He wants to be more strict with life style modifications. Recommended moderate amount of exercise and increased consumption of fruit, vegetables, fish and high fiber foods. We discussed about avoiding consumption of highly saturated fats or trans fats. FU 3 mos Assessment & Plan (07/29/2022 11:02 AM EDT): Tolerating atorvastatin, will call to adjust medication PRN order lipid profile Chronic gastritis 12/11/2015 Atopic conjunctivitis 12/11/2015 Encounters Date Type Department Care Team Description 08/13/2024 Patient Outreach [facility] [address] [place] [address] Nikki Handy MD Pre-visit Planning (SDOH screening positive and Tobacco screening negative); Care Coordination (PT1) 06/18/2024 1:00 PM EDT Office Visit [facility] ADULT DENTAL [address], [place] [phone] Megan Matias Dental calculus (Primary Dx); Dental plaque 06/15/2024 Population Health Risk Score [facility] (C3) Department [address] [place] [id number] Provider, Population Health Generic 05/24/2024 Telephone [facility] [address] [place] [address] Nikki Handy MD May recall from Last 3 Months Immunizations Immunization Administration Dates Next Due Influenza injectable quadriv alent IIV4 with preservative 12/20/2014 Influenza injectable quadrivalent preservative f ree 01/20/2017,03/25/2016 Influenza, IIV3, injectable 01/31/2014, 1 Influenza, Split (incl. purified surface antigen ) 12/14/2012,01/26/2012 TD (adult), 2 Lf tetanus tox oid, preservative free, adsorbed 04/05/2001 Tdap 10/12/2010 Social History Tobacco Use Types Packs/Day Years Used Date Smoking Tobacco: Never Passive Smoke Exposure: Never Smokeless Tobacco: Never Tobacco Cessation:Counseling Given: Not Answered Alcohol Use Standard Drinks/Week Comments Never 0 [...] the past 12 months, has t he electric, gas, oil or water company threatened to [...] not to disclose 2021 10:14 AM EDT Last Filed Vital Signs Vital Sign Reading Time Taken Comments Blood Pressure 132/78 06/18/2024 1:09 PM EDT Pulse 99 04/24/2024 10:10 AM EST Temperature 36.6 ??C (97.8 ??F) 04/24/2024 10:[address] Respiratory Rate 18 04/24/2024 10:10 AM EST Oxygen Saturation 100% 04/24/2024 10:10 AM EST Inhaled Oxygen Concentration - - Weight 58.1 kg (128 lb) 04/24/2024 10:10 AM EST Height 154.9 cm (5' 1 ) 04/24/2024 10:10 AM EST Body Mass Index 24.19 04/24/2024 10:10 AM EST Plan of Treatment Upcoming Encounters Date Type Department Care Team (Late st Contact Info) Description 08/22/2024 10:15 AM EDT Office Visit [facility] [address] [place] [address] Nikki Handy MD [address] [place] [address] 11/22/2024 1:00 PM EDT Office Visit [facility] OPTOMETRY [address] [place] [address] Jo Peres, OD [address] [place] [address] 12/27/2024 3:00 PM EDT Office Visit [facility] ADULT DENTAL [address] [place] [address] Megan Matias Health Maintenance Due Date Last Done Comments CT Colonography 1959 Colonoscopy 1959 Colorectal Cancer Screening 1959 FIT DNA/Cologuard 1959 FIT 1959 FOBT 1959 Sigmoidoscopy 1959 Alcohol/Substance Use Screening 1971 Pneumococcal Vaccine: 50+ Years (1 of 1 - PCV) 12/03/2009 Zoster Vaccines (1 of 2) 12/03/2009 DTaP/Tdap/Td Vaccines (2 - Td or Tdap) 10/12/2020 10/12/2010, 04/05/2001 COVID-19 Vaccine (1 - season) 2023 Influenza Vaccine (#1) 2023 7, 03/25/2016, 12/20/2014, Additional history exists Dental Oral Exam 12/20/2024 06/18/2024, 03/2024, 11/09/2018, Additional history exists Dental Prophylaxis 12/20/2024 06/18/2024, 0 06/14/2023, 05/17/2019, Additional history exists Depression Screening 04/24/2025 04/24/2024, 04/24/19 Tobacco Screening 06/18/2025 06/18/2024 Dental X-Ray: Bitewings 06/19/2025 06/19/19, 06/14/2023, 05/05/2023, Additional history exists SDOH Screening 08/13/2025 08/13/2024 Dental X-Ray: Full Mouth 06/14/2026 06/14/2023, 0810/2017 Lipid Panel 07/25/2028 07/26/2023, 02/03, 07/29/2022, Additional history exists RSV Patients and Patients Aged 60 years or older (1 - 1-dose 75+ series) 12/03/2034 HIV Screening Completed 06/12/2019 Hepatitis C Screening Completed 07/29/2022 HIB Vaccines Aged Out No longer eligi ble based on patient's age to complete this topic HPV Vaccines Aged Out No longer eligi ble based on patient's age to complete this topic Hepatitis A Vaccines Aged Out No long er eligible based on patient's age to complete this topic Hepatitis B Vaccines Aged Out No long er eligible based on patient's age to complete this topic IPV Vaccines Aged Out No longer eligi ble based on patient's age to complete this topic Meningococcal B Vaccine Aged Out No l onger eligible based on patient's age to complete this topic Meningococcal Vaccine Aged Out No rylan kenny eligible based on patient's age to complete this topic RSV under 20 months Aged Out No longe r eligible based on patient's age to complete this topic Rotavirus Vaccines Aged Out No longer eligible based on patient's age to complete this topic Procedures Procedure Name Priority Date/Time Associated Diagnosis Comments ORAL HYGIENE INSTRUCTIONS Routine 06/18/2024 1:00 PM EDT Dental calculus Dental plaque PROPHYLAXIS - ADULT Routine 06/18/2024 1 :00 PM EDT Dental calculus Dental plaque CASE PRESENTATION, DETAILED AND EXTENSIVE TREATMENT PLANNING Routine 06/18/2024 1:00 PM EDT BITEWINGS - 4 RADIOGRAPHIC IMAGES Routine 06/18/2024 1:00 PM EDT PERIODIC ORAL EVALUATION - ESTABLISHED PATIENT Routine 06/18/2024 1:00 PM EDT 12,13,14,15 PARTIAL DENTURE - RESIN Routine 06/18/2024 12:00 AM EDT LIPID PANEL WITH REFLEX TO DIRECT LDL Routine 07/26/2023 10:33 AM EDT Mixed hyperlipidemia INTRAORAL - COMPLETE SERIES OF RADIOGRAPHIC IMAGES Routine 06/14/2023 2:00 PM EDT HEPATITIS PANEL, GENERAL Routine 07/29/2022 11:19 AM EDT Mixed hyperlipidemia ZZZ HISTORICAL HIV AB/AG Routine 06/12/2019 1:11 PM EDT from Last 3 Months or Most Recently Relevant to Health Maintenance Results * (ABNORMAL) Lipid Panel with Reflex to Direct LDL (07/26/2023 10:33 AM EDT) Triglycerides 152(H) <150 mg/dL [facility] Comment:Desirable Triglyceri de: less than 150 mg/dLBorderline High Triglyceride 150-199 mg/dLHigh Triglyceride: 200-499 mg/dLVery High Triglyceride: greater than or equal to 5OO mg/dL Cholesterol 269(H) <200 mg/dL [facility] Comment:Desirable Cholestero l: less than 200 mg/dLBorderline High Cholesterol: 200-239 mg/dLHigh Cholesterol: greater than 239 mg/dL LDL Cholesterol Calculated 182(H) <100 mg/dL [facility] Comment:Desirable LDL: less than 100 mg/dLNear Optimal/Above Optimal LDL: 110- 129 mg/dLBorderline High LDL: 130-159 mg/dLHigh LDL: 160-189 mg/dLVery High LDL: greater than or equal to 190 mg/dL HDL Cholesterol 57 >40 mg/dL [facility] Comment:Desirable HDL: great er than 40 mg/dL Note: This HDL assay may give artificially low results in patients with liver disease. Blood 07/26/2023 10:3 3 AM EDT 07/26/2023 11:32 AM EDT Nikki Handy MD LAB BLOOD ORDERABLES Fin al Result [facility] [address] [place] [address] [phone] * (ABNORMAL) Hepatitis Panel, General (07/29/2022 11:19 AM EDT) Hepatitis A Antibody Total REACTIVE( A) NON-REACT [employer] [place] [employer] Comment: For additional information, please refer to http://SuperLikers.Detectent/faq/VEN767 (This link is being provided for informational/ educational purposes only.) Hepatitis B Surface Antibody QL NON-REACT MICHAEL NON-REACT [facility] Hepatitis B Surface Ag NON-REACT MICHAEL NON-REACT [facility] Hepatitis B Core Antibody Total NON-REACT MICHAEL NON-REACT [facility] Hepatitis C Antibody NON-REACT MICHAEL NON-REACT [facility] Index 0.08 <1.00 [facility] [place] [employer] Comment: HCV antibody was non-reactive. There is no laboratory evidence of HCV infection. In most cases, no further action is required. However, if recent HCV exposure is suspected, a test for HCV RNA (test code 50188) is suggested. For additional information please refer to http://SuperLikers.Detectent/faq/ZHJ53o5 (This link is being provided for informational/ educational purposes only.) 07/29/2022 11:1 9 AM EDT 07/29/2022 11:20 AM EDT Narrative [facility] - 07/30/2022 5:00 AM EDT FASTING:YES FASTING: YES us Nikki Handy MD LAB BLOOD ORDERABLES Fin al Result [facility] [address], [place] [address] [facility] [address] [place] [address] * HIV AB/AG (06/12/2019 1:11 PM EDT) [facility] HIV AG/AB NONREACTIVE [facility] Comment: HIV-1 p24 Ag and/or HIV-1/HIV-2 Ab not detected. ?? A test result that is nonreactive does not exclude the possibility of exposure to or infection with HIV-1 and/or HIV-2. Nonreactive results in this assay for individuals with prior exposure to HIV-1 and/or HIV-2 may be due to antigen and antibody levels that are below the limit of detection of this assay. ?? The [employer] Submersible HIV Ag/Ab Combo assay result and supplemental assay results should be interpreted in conjunction with the patient's clinical presentation, history and other laboratory results. ??If the results are inconsistent with clinical evidence, additional testing is suggested to confirm the result. 06/12/2019 1:11 PM EDT us Chelsey Baez NP HISTORICAL/NON ORDERABLE LABS Fi nal Result [facility] [address] from Last 3 Months or Most Recently Relevant to Health Maintenance Insurance [facility] * Guarantor: Nelson Zaragoza Account Type Relation to Patient Date of Phone Billing Address Personal/Family Self [address] Juan Montoya [place] Care Teams Medical Concierge Relationship Specialty Start Date End Date Nikki Handy MD [address] [place] [address] [place] [address] PCP - General Family Medicine 05/14/20
--- OUTSIDE RECORDS SUMMARY | 2024-08-17 13:59 | XMS_ITS | Encounter Summary ---
Author Organization [employer] Address [address] [facility] 7 [place] [address] Care Team Providers Care Able Bodied Tankerman Name Role Phone Nikki Handy MD Primary Care Provider + Encounter Details Date Type Department Care Team (Late st Contact Info) Description 06/28/2022 Orders Only [facility] [address] [place] [phone] Radha Drake LPN Social History Tobacco Use Types Packs/Day [...] Description 08/22/2024 10:15 AM EDT Office Visit [facility] [address] [place] [address] Nikki Handy MD [address] [place], [place] [phone] 11/22/2024 1:00 PM EDT Office Visit [facility] OPTOMETRY [address] [place] [address] Jo Peres, KAYLEE [address] [place] [address] 12/27/2024 3:00 PM EDT Office Visit [facility] ADULT DENTAL [address] [place] [address] Megan Matias documented as of this encounter Visit Diagnoses Not on filedocumented in this encounter Care Teams Able Bodied Tankerman Relationship Specialty Start Date End Date Nikki Handy MD [address] [place] [address] PCP - General Family Medicine 05/14/20 documented as of this encounter
[2024-08-17 16:47] LABS: Alanine Aminotransferase 19 U/L (0-40); Albumin Level 4.2 g/dL (3.5-5.0); Alkaline Phosphatase 124 U/L (39-117); Aspartate Amino Transferase 31 U/L (5-37); Bilirubin Direct 0.1 mg/dL (0.0-0.5); Bilirubin Total 0.4 mg/dL (0.0-1.0); Cholesterol 234 mg/dL (<200); HDL Cholesterol 55 mg/dL (>40); LDL Cholesterol Calculated 146 mg/dL (<100); Total Protein 7.1 g/dL (6.5-8.0); Triglycerides 168 mg/dL (<150)
[2024-08-17 17:15] LABS: Reflex LDLD? No
== END 2024-08-17 13:56 | disposition home or self-care (01) ==
LOC: HO.HHCL 13:55
PROVIDERS: Visit Provider Internal Medicine
DX: E78.2 Mixed hyperlipidemia (principal)
CPT/HCPCS: 36415; 80061; 80076

== ENCOUNTER 2024-10-15 10:56 | Outpatient (REF) | payer MEDICAID, SELFPAY ==
--- OUTSIDE RECORDS SUMMARY | 2024-10-15 11:56 | XMS_ITS | Encounter Summary ---
Author Organization [employer] Address [address] [place] [address] [address] [place] [address] Care Team Providers Care Bead Wire Taper Name Role Phone Nikki Handy MD Primary Care Provider + Encounter Details Date Type Department Care Team (Latest Contact Info) Description 05/12/2018 Abstract [facility] CONVERSIONS Dental, Provider, DDS Social History Tobacco [...] Care Team (Late st Contact Info) Description 11/22/2024 1:00 PM EDT Office Visit [facility] OPTOMETRY [address] [place] [address] Jo Peres OD [address] [place] [address] 12/27/2024 3:00 PM EDT Office Visit [facility] ADULT DENTAL [address] [place] [address] Megan Matias documented as of this encounter Visit Diagnoses Not on filedocumented in this encounter Care Teams Bead Wire Taper Relationship Specialty Start Date End Date Nikki Handy MD [address] [place] [address] PCP - General Family Medicine 05/14/20 documented as of this encounter
[2024-10-15 13:51] LABS: Prostate Specific Antigen 1.54 ng/mL (<0.05-4.0)
== END 2024-10-15 10:57 | disposition home or self-care (01) ==
LOC: HO.10HDL 10:56
PROVIDERS: Visit Provider Urology
DX: Z12.5 Encounter for screening for malignant neoplasm of prostate (principal); N32.0 Bladder-neck obstruction
CPT/HCPCS: 36415; 84153

== ENCOUNTER 2024-10-16 14:41 | Outpatient (AMB) | payer MEDICAID, SELFPAY ==
--- NOTE | 2024-10-16 14:43 | A.OFFVIS_ITS ---
Intake Visit Reasons: 6 month follow up/ PSA/ PVR Intake Note: Patient is present for 6 mo follow up on kidney stones Urology Medication:TAMSULOSIN PSA 10/15/24:1.54 Antibiotic Allergy:NONE Blood Thinner:NONE Computer Equipment Installer Required: No Accompanied by: Self / Same As Patient Allergies No Known Allergies Allergy (Verified 10/16/24 14:45) HPI Comments Details: Nelson is a pleasant Peruvian-speaking male. He is a patient of Dr. Handy. Using for the following urologic conditions - bladder stone - lower urinary tract symptoms Peruvian translation provided by qualified medical laboratory specialist Six-month follow-up from [facility] PSA 1.5 UA normal Effective bladder emptying with good stream Off all medications 12 month follow-up PVR Lower urinary tract symptoms Should presentation with urgency and frequency Ultrasound performed which showed 1.9 cm bladder stone [facility] laser 03/27 [facility] Medical History (Updated 02/02/24 @ 14:28 by Shivam Bellamy MD) Lower urinary tract symptoms Non-seasonal allergic rhinitis Elevated blood pressure reading Tachycardia Gastro-esophageal reflux At risk for deficient intake of food Slow transit constipation Decreased vision Vitamin D deficiency Atopic conjunctivitis Chronic gastritis Mixed hyperlipidemia Moderate recurrent major depression Surgical History Hx of circumcision History of esophagogastroduodenoscopy (EGD) H/O colonoscopy Social History Are you a primary career education teacher to a significant other at home: No Do you presently have visiting nurse or other home services: No Patient Tobacco Use Status: Never used Tobacco Review of Systems Const Denies chills and Denies fever(s) Card Reports no additional complaints and Denies syncope Resp Denies cough GI Denies abdominal pain and Denies heartburn Reports as per HPI and Denies change in libido Neuro Denies syncope Psych Denies change in libido Endo Denies change in libido Physical Exam Const General: cooperative, healthy appearing, comfortable and no acute distress Orientation/consciousness: patient oriented x3 HEENT Face and sinus: Yes normal facial exam Mouth: moist mucous membranes Neck Neck: Yes normal visual inspection, Yes full ROM and Yes trachea midline Chest Chest palpation & inspection: normal inspection of the chest Resp Effort & Inspection: normal respiratory effort, able to speak in complete sentences and no respiratory distress GI Inspection: Yes normal to inspection Back/Spine/Pelvis Cervical Spine: normal cervical lordosis Thoracic/Lumbar Spine: thoracic and lumbar spine normal to inspection Skin General skin exam: no rashes or lesions noted Neuro General: patient oriented x3, gait normal, tone normal and moves all extremities Extrem General: Yes normal to inspection and Yes capillary refill normal Assessment & Plan Assessment & Plan (1) Urinary frequency: Code(s): R35.0 - Frequency of micturition Category: Medical (2) Bladder outlet obstruction: Code(s): N32.0 - Bladder-neck obstruction Category: Medical Plan Twelve month follow-up PVR Patient Instructions: This note is constructed using voice recognition software. While every effort has been made to ensure accuracy meat process worker errors may have been included. Imaging studies, laboratory and physical exam results were discussed and reviewed in detail. No major barriers to patient understanding were identified. An opportunity to ask questions regarding the treatment plan was provided. All questions were answered. The patient expressed understanding and agreement with the above treatment plan. The patient is aware they should contact our office by phone for worsening of their current condition or the appearance of new urologic symptoms. Compliance is encouraged with any medications and followup testing that is ordered. It is a privilege to participate in the urologic care of your patient. If you have any questions or concerns regarding treatment for the above conditions, or other urologic issues, please do not hesitate to contact me. The office telephone contact is [phone]. Sincerely, Dr Shivam Bellamy MD, [facility] - Urology Compassionate Specialist Care for the Genitourinary System Coding Level of Care Code Est Pt Level 3 (72393) Diagnoses Urinary frequency R35.0 Bladder outlet obstruction N32.0
--- OUTSIDE RECORDS SUMMARY | 2024-10-16 16:01 | XMS_ITS | Encounter Summary ---
Author Organization [employer] Address [address] [place] [address] [address], [place] [address] Care Team Providers Care Avp Name Role Phone Nikki Handy MD Primary Care Provider + Encounter Details Date Type Department Care Team (Latest Contact Info) Description 05/12/2018 Abstract [facility] CONVERSIONS Dental, Provider, DDS Social History [...] Description 11/22/2024 1:00 PM EDT Office Visit [facility] OPTOMETRY [address] [place] [address] Jo Peres OD [address] [place] [address] 12/27/2024 3:00 PM EDT Office Visit [facility] ADULT DENTAL [address] [place] [address] Megan Matias documented as of this encounter Visit Diagnoses Not on filedocumented in this encounter Care Teams Avp Relationship Specialty Start Date End Date Nikki Handy MD [address] [place] [address] PCP - General Family Medicine 05/14/20 documented as of this encounter
== END 2024-10-16 16:07 | disposition home or self-care (01) ==
LOC: HO.HUSH 14:42
PROVIDERS: PCP Internal Medicine; Visit Provider Urology
DX: R35.0 Frequency of micturition (principal); N32.0 Bladder-neck obstruction; Z13.9 Encounter for screening, unspecified
CPT/HCPCS: 99213

== ENCOUNTER → 2024-10-16 14:41 | Outpatient (BNVA) | payer MEDICAID, SELFPAY | PROVIDERS: PCP Internal Medicine; Visit Provider Urology | DX: N32.0 Bladder-neck obstruction (principal); R35.0 Frequency of micturition | CPT/HCPCS: 81003; 99212 ==